=== PATIENT | male | born 1970 | race Caucasian/White ===

== ENCOUNTER 2017-07-31 04:03 | Emergency (ER) | payer SELFPAY ==
[2017-07-31 04:13] VITALS: TEMP 97.1
[2017-07-31] MEDS ORDERED: LIDOCAINE HCL 2% (VISCOUS) 20 ML SOL MT ONE (04:18)
[2017-07-31] MEDS ORDERED: ALUMINUM/MAGNESIUM 30 ML SUS ONE (04:18)
[2017-07-31] MEDS ORDERED: ALUMINUM/MAGNESIUM 30 ML SUS PO ONE (04:18)
[2017-07-31] MEDS ORDERED: LIDOCAINE HCL 2% (VISCOUS) 20 ML SOL ONE (04:19)
[2017-07-31 04:50] VITALS: BP 140/90; PULSE 65; RESP 22; O2SAT 100
== END 2017-07-31 04:52 | disposition home or self-care (01) | DRG 392 ==
LOC: ED 04:03
DX: K21.9 Gastro-esophageal reflux disease without esophagitis (principal)
CPT/HCPCS: 93005; 99283; A9270-GY